=== PATIENT | female | born 1935 | race Caucasian/White ===

== ENCOUNTER 2016-11-25 11:45 | Observation (INO) | payer OTHER ==
[~2016-11-25] VITALS: Ht 165.1 cm; Wt 88.3 kg
[~2016-11-25 11:45] MED LIST: COLACE100 MG PO; DITROPAN EQUIVAL5 MG PO; FERROUS FUMARATE PO; FLUOXETINE HCL20 MG PO; FUROSEMIDE20 MG PO; HYCET1 ML PO; LEXAPRO20 MG PO; LISINOPRIL10 MG PO; LOVASTATIN40 MG PO; METFORMIN HCL500 MG PO; OMEPRAZOLE20 M1 PO; PROTONIX40 MG PO
--- NOTE | 2016-11-25 13:27 | DIAGNOSTIC IMAGING REPORT ---
PROCEDURE: XR HIP 2VW W W/O AP PELVIS-LT INDICATION: Left hip pain post fall. History of bilateral hip prosthesis TECHNIQUE: AP view of the pelvis and hips with lateral view of the left hip. COMPARISON: None. FINDINGS: LEFT HIP: Status post left proximal femoral prosthesis (most likely bipolar). Findings suggest a nondisplaced fracture of the intertrochanteric region of the left proximal femur. PELVIS: Status post right total hip prosthesis. Mild to moderate degenerative changes of the sacroiliac joints. Osseous pelvis is otherwise normal. Surgical coils overlying the lower abdominal wall. Marked degenerative changes of the lower lumbar spine IMPRESSION: 1. Status post left proximal femoral prosthesis with findings suggesting a nondisplaced acute intertrochanteric fracture of the left proximal femur. 2. Status post right total hip prosthesis. 3. Negative pelvis. 4. Findings called to Dr. Elmore.
--- NOTE | 2016-11-25 13:30 | DIAGNOSTIC IMAGING REPORT ---
PROCEDURE: XR FEMUR - LEFT INDICATION: Left hip and knee pain after fall. TECHNIQUE: AP and lateral views (four images). COMPARISON: None. FINDINGS: Status post left proximal femoral prosthesis. Findings suggest a nondisplaced intertrochanteric fracture of the left proximal femur. Status post left total knee prosthesis. Mid and distal femur are otherwise normal. IMPRESSION: 1. Status post left proximal femoral prosthesis with findings suggesting a nondisplaced intertrochanteric fracture of the left proximal femur. 2. Status post left total knee prosthesis. 3. Normal mid and distal left femur. 4. Findings discussed with Dr. Elmore.
--- NOTE | 2016-11-25 13:52 | DIAGNOSTIC IMAGING REPORT ---
PROCEDURE: CT LOWER EXT W/O CONTRAST-LEFT CLINICAL INDICATION: Left hip pain after fall. Left hip prosthesis. TECHNIQUE: Thin-cut noncontrast axial images with sagittal and coronal reformations. COMPARISON: Comparison made radiographs of the left hip and left femur earlier in the day (11/25/2016). FINDINGS: Status post left proximal femoral prosthesis. There is a nondisplaced intertrochanteric fracture of the left proximal femoral shaft. The femoral prosthesis is in satisfactory position. Portions of the left gregory pelvis are seen. There are moderate arthritic changes of the left sacroiliac joint and marked degenerative changes of the lower lumbar spine. IMPRESSION: 1. Status post left proximal femoral prosthesis. 2. There is a nondisplaced intertrochanteric fracture of the left proximal femur, although osseous structures and prosthetic components are in anatomic position. 3. Findings discussed with Dr. Elmore and called to Dr. Babin (as requested). All CT scans at this facility use dose modulation, iterative reconstruction, and/or weight-based dosing when appropriate to reduce radiation dose to as low as reasonably achievable.
[2016-11-25 16:29] VITALS: BP 119/53
--- NOTE | 2016-11-25 16:47 | NUR ---
PATIENT WAS JUST BROUGHT HERE TO UNIT. SHE STOOD UP AND TURNDED AROUND TO ACUTE CARE BED. VSS. NO C/O N/V, NO C/O SOB OR CHEST PAIN. RESTING NOW.
--- NOTE | 2016-11-25 17:56 | Consultation Report ---
Admission Admit Date 11/25/16 History Chief Complaint Left hip pain after ground-level fall roughly 4 days ago. History of Present Illness 81-year-old female drove herself to clinic to see Dr. 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 She reported that she had sustained a ground-level fall on Wednesday - approximately 4 days ago - and had left hip pain which has required her to use a cane and even a walker. Her past medical history is significant for a left bipolar hemiarthroplasty, uncemented, that was placed approximately 3 years ago. [facility]. She also has a left total knee and a right total hip. X-rays were obtained which showed a nondisplaced fracture in the intertrochanteric region but no fracture about the total knee replacement below no instability in the stem was appreciated. This was confirmed with a CT scan. I reviewed the images and agree with the radiologist's reports. I was contacted by the patient's primary care service, Dr. Babin who is covering for her primary care physician and asked to review the images and make recommendations for treatment of the fracture. Patient admits that she has been weightbearing on the fracture but minimizing it due to pain. She agrees that she needs a walker for safety. She denies any other injury. She does not report any numbness tingling weakness or leg length inequality. Patient History 1. Periprosthetic intertrochanteric fracture of femur 2. Small bowel obstruction 3. Anxiety 4. Arthritis 5. Depression 6. GERD (gastroesophageal reflux disease) 7. Hyperlipidemia 8. Chronic low back pain 9. Insomnia 10. Uterine cancer 11. Diverticulitis 12. Anemia 13. Carcinoma of cecum 14. Hip fracture 15. S/P PARTIAL RIGHT HEMICOLECTOMY Social History Patient has a rancher who lives in her house has been providing help to her she has a son who lives in the area. Family History Family history was reviewed; no changes noted. Advance Directive Durable POA-Healthcare (deferred to primary service) Medications and Allergies Medications Please see primary service history and physical for complete list Current Medications Sig/Natanael Start time Last Medication Dose Route Stop Time Status Admin Acetaminophen 650 MG Q6H PRN 11/25 6595 AC PO Allergies Coded Allergies: No Known Drug Allergy (06/29/16) Review of Systems Constitutional Denies: Fever, Chills, Sweats, Weakness, Malaise. Musculoskeletal Denies: Other (no leg length inequality noted). Skin Denies: Other (no break in the skin noted). Neurological Denies: Weakness, Numbness, Change in speech, Confusion. Physical Exam Vital Signs / I&Os Vital Signs Date Time Temp Pulse Resp B/P Pulse O2 O2 Flow FiO2 Ox Delivery Rate 11/25 1629 36.7 56 16 119/53 100 General Appearance Alert, Oriented X3, Cooperative, No acute distress HEENT Normal exam, Atraumatic Lungs Normal air movement Extremities no leg length inequality noted she is able to lift her left heel off the bed she moves her left hip without extreme pain she is tender over the left greater trochanter. Skin No Breakdown, No Significant Lesions, there is no open wound over the fracture site. Neurological Normal exam, Sensation intact, she is able to fire bilateral ankle dorsiflexors, plantar flexors, EHL and FHL and lift her left heel off the bed without significant pain. Psych/Mental Status Mental status normal, Mood normal Imaging See HPI and radiology reports hip and femur x-rays and CT scan are reviewed. The radiologist that there is a nondisplaced intertrochanteric fracture about a normally positioned uncemented left hip bipolar hemiarthroplasty proximal stem. Assessment and Plan Problem List 1. Periprosthetic intertrochanteric fracture of femur Onset Date 11/21/16 Status Acute Plan Nonoperative treatment is indicated for this Buckley Type A nondisplaced periprosthetic left proximal femur fracture. She will be allowed to be weightbearing as tolerated with a walker for fall precautions she should minimize active left hip abduction. Physical therapy consult would be appropriate for confirming safety with ambulation with a walker. She will follow up in the orthopedic clinic in 1-2 weeks for repeat hip x-rays sooner if she feels any shifting of the prosthesis or fracture or feels that she has developed increased pain in her leg length inequality. I agree with Dr. Babin 's decision to admit the patient to make sure there is no other cause for her fall other than mechanical in that she is safe with ambulation with the above assistance and finally to determine if jail or rehabilitation placement is indicated for patient safety and recovery.
[2016-11-25 19:17] VITALS: BP 114/53
--- NOTE | 2016-11-25 19:29 | HISTORY AND PHYSICAL ---
ADMITTED: 11/25/2016 CHIEF COMPLAINT: 1. Hip pain HISTORY OF PRESENT ILLNESS: An 81-year-old female admitted to [facility] by Dr. Elmore for hip fracture. The patient presented to his office for followup on colon cancer and reported to him left hip pain since falling on Wednesday, 4 days prior to visit. The patient noticed the pain seemed to be worsening each day. She had surgery on it 4 years ago with a hip replacement at that time and states it had been well until the fall. She denied swelling, but stated there was some tenderness to touch of the left hip. She noted the pain was worse with walking and better when she is not walking. MEDICAL/SURGICAL HISTORY: Past medical history: Remarkable for cecal/colon cancer, anemia, anxiety, fatigue, osteopenia, history of partial small-bowel obstruction , history of impaired fasting glucose, insomnia, GERD, hypertension, hyperlipidemia, depression, and anxiety. The patient had uterine cancer in 2001. Surgeries: History of hip replacement 01/2013, incisional hernia repair 2011, ventral hernia repair 2011, hip replacement 03/2011, knee replacement 2008, knee replacement 2004, lumbar spine fusion 2004, hernia repair 2003, hysterectomy, total abdominal 2000, cholecystectomy 1958, T and A 193. MEDICATIONS: 1. [place] 7.5/325 one p.o. q.6 hours p.r.n. pain. 2. Iron 325 mg p.o. b.i.d. 3. Calcium 500 mg with vitamin D 400 units 1 p.o. daily. 4. Alendronate 70 mg 1 p.o. weekly. 5. Gabapentin 100 mg p.o. at bedtime for nerve pain. 6. Metformin 500 mg 1/2 tablet at bedtime. 7. Omeprazole 20 mg p.o. b.i.d. 8. Fluoxetine 20 mg p.o. daily. 9. Lovastatin 40 mg p.o. daily. 10. Lisinopril 20 mg p.o. daily. 11. Colace 100 mg p.o. daily. 12. Oxybutynin 5 mg p.o. t.i.d. p.r.n. ALLERGIES: 1. NONE KNOWN. SOCIAL HISTORY: female, retired, with 4 children. 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 Hobbies included sewing, crocheting and knitting. FAMILY HISTORY: Mother in her 80s of heart disease. Father at age 74 of heart disease. Three siblings are alive and well. Another sibling of a logging accident at age 32. Two sons and 2 daughters are alive and well. REVIEW OF SYSTEMS: General: Denies fever, chills, sweats, weight change. HEENT: Denies vision change, hearing change or difficulty swallowing. Respiratory: Denies shortness of breath, wheezing, or pleuritic chest pain. Cardiac: Denies chest pain, palpitations, paroxysmal nocturnal dyspnea or claudication. Gastrointestinal: Denies nausea, vomiting, diarrhea, constipation, melena, or bright red blood per rectum. Genitourinary: Denies frequency, hematuria, or dysuria. Musculoskeletal: Hip pain as noted above. Denies other joint pain with the exception of some chronic shoulder pain. Dermatologic: Denies rash, skin lesions or itching. PHYSICAL EXAMINATION: GENERAL: Well-developed, well-nourished female in no acute distress; obese. VITAL SIGNS: Temperature 98.1 degrees, pulse 56, respirations 16, blood pressure 119/53, SaO2 100%. HEENT: Clear. NECK: Supple without adenopathy or thyromegaly. LUNGS: Clear to auscultation and percussion. HEART: Regular rate and rhythm without murmur. ABDOMEN: Positive bowel sounds. Soft, obese, nontender, without masses. BACK: Straight without CVA tenderness. EXTREMITIES: Without cyanosis, clubbing, or edema. There is pain with movement of the left hip and pain to palpation laterally over the left hip. No crepitus is palpable. Calves are nontender. There is no peripheral edema. SKIN: Without rash. NEUROLOGIC: Intact and symmetric. GENITAL: Deferred. RECTAL: Deferred. BREASTS: Deferred. LAB/IMAGING: Laboratories: WBC 9.6, hemoglobin 13.0, hematocrit 38.8, platelets 189,000. Sodium 133, potassium 3.8, chloride 100, bicarb 20, BUN 27, creatinine 1.2, glucose 121, calcium 9.1. Total bilirubin 1.2, AST 15, ALT 14, alk phos 82, total protein 7.6. Imaging: Femur x-ray: Shows status post left proximal femoral prosthesis with findings suggesting nondisplaced intertrochanteric fracture of the left proximal femur, status post left total knee prosthesis, normal mid and distal left femur. Hip and pelvis x-ray confirm findings on the femur x-ray. CT of the left lower extremity: Shows status post left proximal femoral prosthesis, nondisplaced intertrochanteric fracture of the left proximal femur with osseous structures and prosthetic components in anatomic position. IMPRESSION: 1. Nondisplaced intertrochanteric fracture of the left proximal femur with left proximal femoral prosthesis in place. 2. History of colon cancer, status post resection. 3. Hypertension. 4. Hyperlipidemia. 5. Anxiety disorder. 6. History of osteopenia/osteoporosis, on medication. PLAN: Admit to [facility]. Orthopedic consultation obtained. The patient has already been seen by Orthopedics in the x-ray department with recommendations to admit the patient, initiate physical therapy assessment, evaluate stability of pain control and ambulation. If safe with ambulation with walker, to discharge patient home tomorrow with outpatient orthopedic and physical therapy followup as fracture appears to be stabilized by a prosthesis. Colon cancer followup as per Dr. Elmore.
--- NOTE | 2016-11-25 20:18 | NUR ---
PATIENT IS ALERT AND ORIENTED. NO C/O CHEST PAIN. NO C/O SOB.IS GETTING LOVONOX INJECTIONS FOR DVT PREVETION. LEFT HIP IS SLIGHTLY BRUISED. GOOD PEDAL PULSES. GOOD SENSATION IN BOTH FEET.
--- NOTE | 2016-11-25 20:23 | NUR ---
CALLED DR SHEARER JUST TO MAKE SURE HE HAD SEEN PATIENTS MOST CURRENT LAB VALUES FOR THE DAY. NO CALL BACK YET.
[2016-11-25 22:29] VITALS: BP 112/64
[2016-11-26 03:06] VITALS: BP 109/72
--- NOTE | 2016-11-26 06:33 | NUR ---
PT RESTED WELL DURING THE NIGHT. VSS ON ROOM AIR. PT STATED THAT PAIN LEVEL WAS 10/10 WHEN AMBULATING BUT ONLY 5/10 WHEN IN BED RESTING. PT REFUSED PAIN MEDS DURING THE SHIFT. PT ABLE TO TURN SELF IN BED. AMBULATES WITH WALKER.
[2016-11-26 07:21] VITALS: BP 106/40
--- NOTE | 2016-11-26 07:52 | Progress Note ---
Subjective General 81yo with hip fx on repolaced hip with prosthesis in place. Stable for ambulation with walker per ortho. Pt feeling OK. Has some pain with movement. Denies nausea, vomiting dizziness or weakness. Physical Exam Vital Signs / I&Os Vital Signs Date Time Temp Pulse Resp B/P Pulse O2 O2 Flow FiO2 Ox Delivery Rate 11/26 0721 106/40 11/26 0654 97.7 56 16 99 Room Air 11/26 0306 98.1 56 16 109/72 99 Room Air 11/26 0040 Room Air 11/25 2229 98.2 59 15 112/64 100 11/25 1917 63 114/53 11/25 1629 98.1 56 16 119/53 100 I&O 11/25 0800 11/25 1600 11/26 0000 Intake Total 440 Output Total 300 Balance 140 General Appearance Alert, Oriented X3, Cooperative, No acute distress Lungs Clear to auscultation Cardiovascular Regular rate and rhythm Abdomen Soft, No tenderness Extremities No edema Skin No Rashes Assessment and Plan Problem List 1. Hip fracture Plan PT assessment. 2. Carcinoma of cecum Status Resolved Plan Stable post surgery.
[2016-11-26 09:16] VITALS: BP 113/54
[2016-11-26] MEDS ORDERED: LISINOPRIL10 MG PO (13:38)
[2016-11-26] MEDS ORDERED: PERCOCET1 TA1 PO (13:40)
--- NOTE | 2016-11-26 14:04 | Provider's Discharge Care Plan ---
Problem, Goal, Plan Problem List 1. Hip fracture Goals: Improved health/wellness Instructions: Home physical therapy. Use walker. 2. Carcinoma of cecum Goals: Improved health/wellness Instructions: as per Dr. Elmore 3. Hyperlipidemia Goals: Improve disease control Instructions: Take meds as directed 4. Hypertension Goals: Improve disease control Instructions: Take meds as directed
--- NOTE | 2016-11-26 14:13 | DISCHARGE SUMMARY ---
ADMIT DATE: 11/25/2016 DISCHARGE DATE: 11/26/2016 ADMITTING DIAGNOSES: 1. Hip fracture, nondisplaced intertrochanteric left proximal femur with femoral prosthesis in place. 2. History of colon cancer, status post resection. 3. Hypertension. 4. Hyperlipidemia. 5. Anxiety. 6. History of osteopenia/osteoporosis on Fosamax. DISCHARGE DIAGNOSES: 1. Hip fracture, nondisplaced intertrochanteric left proximal femur with femoral prosthesis in place. 2. History of colon cancer, status post resection. 3. Hypertension. 4. Hyperlipidemia. 5. Anxiety. 6. History of osteopenia/osteoporosis on Fosamax. HISTORY OF PRESENT ILLNESS: An 81-year-old female presented to [facility] after a hip x-ray done by Dr. Elmore showed the fracture. This was confirmed by CT. She was therefore admitted for evaluation and treatment. HOSPITAL COURSE: Orthopedic consult was obtained and decision was made to allow ambulation with walker as the fracture is stable due to prosthesis in place and lack of displacement. Physical therapy assessment was undertaken. The patient was found to be stable with transfers and ambulation with walker and she was therefore discharged home for outpatient management and will follow up with primary care and with Orthopedics. DISPOSITION: Home. DISCHARGE MEDICATIONS/INSTRUCTIONS: 1. Lisinopril reduced to 10 mg p.o. daily. 2. Oxycodone/APAP 5/325 one to 2 p.o. 4 hours p.r.n. pain. 3. Lovastatin 40 mg p.o. at bedtime. 4. Metformin 500 mg at bedtime. 5. Oxybutynin 5 mg p.o. daily. 6. Fluoxetine 20 mg p.o. daily. 7. Omeprazole 20 mg p.o. b.i.d. 8. Iron 325 at bedtime. 9. Docusate 100 mg p.o. a.c. and at bedtime. 10. Special instructions: Use walker at home. Advance activity as per home physical therapy instructions and home physical therapy to be established. Follow up with primary care office in 2 weeks and with orthopedics following that.
--- NOTE | 2016-11-26 14:39 | NUR ---
PATIENT LEFT AT 1435, UA NEGATIVE FOR UTI, GIVEN SIGNED RX FOR PERCOCET AND LISINOPRIL LESSER DOSE, REPORTS THAT SHE HAS NO FURTHER QUESTIONS AND HAS ALL HER PERSONAL BELONGINGS AND HOME MEDICATION FROM PHARMACY. IV DC'D AND CATHETER TIP INTACT. DRESSED INDEPENDANTLY, HER CAR IS DOWN STAIRS AND SHE WILL BE DRIVING HERSELF HOME - SOCIAL WORK AWARE OF THIS AND STATES THAT THAT IS OKAY PLAN. PATIENT AWARE NOT TO DRIVE ON NARCOTICS AND HASN'T HAD ANY IN 4 HOURS. ESCORTED OUT VIA WHEEL CHAIR WITH PHYSICIAN SUPPORT COORDINATOR.
== END 2016-11-26 14:40 | disposition home or self-care (01) ==
LOC: LAB SRH 11:45 → ACUTE2 SRH 15:42
PROVIDERS: ADMIT Family Medicine
DX: S72.145A Nondisplaced intertrochanteric fracture of left femur, initial encounter for closed fracture (principal); Z96.642 Presence of left artificial hip joint; W18.30XA Fall on same level, unspecified, initial encounter; Y99.8 Other external cause status; I10 Essential (primary) hypertension; E78.5 Hyperlipidemia, unspecified; F41.9 Anxiety disorder, unspecified; M81.0 Age-related osteoporosis without current pathological fracture

== ENCOUNTER 2016-12-10 12:30 | Outpatient (CLI) | payer OTHER ==
[~2016-12-10 12:30] MED LIST changes: +PERCOCET1 TA1 PO
--- NOTE | 2016-12-10 12:49 | DIAGNOSTIC IMAGING REPORT ---
PROCEDURE: XR CHEST 2 VIEW INDICATION: PNEUMONIA TECHNIQUE: PA and lateral views. COMPARISON: Chest 11/16/2014 and 02/21/13 FINDINGS: Patchy left lower lobe infiltrate. Heart and mediastinum are normal. Thorax is normal. IMPRESSION: 1. Patchy left lower lobe infiltrate.
== END 2016-12-10 23:00 ==
LOC: XR SRH 12:30
DX: R91.8 Other nonspecific abnormal finding of lung field (principal)

== ENCOUNTER 2016-12-23 14:58 | Outpatient (CLI) | payer OTHER ==
--- NOTE | 2016-12-23 15:40 | DIAGNOSTIC IMAGING REPORT ---
PROCEDURE: XR CHEST 2 VIEW INDICATION: PNEUMONIA TECHNIQUE: PA and lateral views. COMPARISON: Chest 12/10/16 FINDINGS: Decrease in the left lower lobe infiltrate. There is new atelectasis or infiltrate at the right costophrenic angle. IMPRESSION: 1. Decrease in left lower lobe infiltrate. 2 Infiltrate or atelectasis at the right status costophrenic angle.
== END 2016-12-23 23:00 ==
LOC: XR SRH 14:58
DX: J18.9 Pneumonia, unspecified organism (principal)

== ENCOUNTER 2017-01-06 11:05 | Outpatient (CLI) | payer OTHER ==
--- NOTE | 2017-01-06 11:33 | DIAGNOSTIC IMAGING REPORT ---
PROCEDURE: XR CHEST 2 VIEW INDICATION: PNEUMONIA TECHNIQUE: PA and lateral views. COMPARISON: Chest 12/23/2016 12/10/2016 and 11/16/2014 FINDINGS: Lungs are clear. Heart and mediastinum are normal. Thorax is normal. IMPRESSION: 1. Lungs clear. Resolution of previous infiltrates.
== END 2017-01-06 23:00 ==
LOC: XR SRH 11:05
DX: J18.9 Pneumonia, unspecified organism (principal)